=== PATIENT | female | born 1990 | race Caucasian/White ===

== ENCOUNTER 2021-02-05 10:04 | Observation (INO) | payer OTHER, SELFPAY ==
--- NOTE | 2021-02-05 13:18 | OBADM ---
This patient, Shalra Sommers, admitted to the OB room Labor/Delivery/Recovery 104 for observation. Patient/family oriented to hospital policies and general routines including ID bracelet, bed and alarms, visiting hours, pain management, procedures, bathroom and other care routines, personal items, smoking policy, room service/diet, and visiting hours. Patient/Family are encouraged to report perceived risks to care and to ask questions if they do not understand what they are told or what they should do.
--- NOTE | 2021-02-26 10:39 | PM.OBTRLD ---
OB - Triage/Final Diagnosis Visit Information Date of evaluation: 02/05/21 Reason for evaluation: threatened labor Comments/Additional reasons for admission: I have assessed the risk for this patient, Sharla Das, and determined that she would benefit from observation care.
== END 2021-02-05 12:35 | disposition home or self-care (01) ==
PROVIDERS: Admitting Provider Student in an Organized Health Care Education/Training Program; Visit Provider Student in an Organized Health Care Education/Training Program
DX: O47.1 False labor at or after 37 completed weeks of gestation (principal); Z3A.38 38 weeks gestation of pregnancy
CPT/HCPCS: G0378; G0379

== ENCOUNTER 2021-02-05 23:23 | Inpatient (IN) | payer OTHER, SELFPAY ==
--- NOTE | 2021-02-05 12:13 | PM.OBTRLD ---
OB - Triage/Final Diagnosis Visit Information Date of evaluation: 02/05/21 Reason for evaluation: threatened labor Comments/Additional reasons for admission: I have assessed the risk for this patient, Sharla Sommers, and determined that she would benefit from observation care. Evaluation Baseline heart rate: 140 Variability: Moderate (11-25) monitor accelerations: Present monitor decelerations: Episodic Cervical dilation (cm): 1 Cervical effacement (%): 50 station: -3
[2021-02-06] VITALS (57 sets, daily range): BP systolic 94–200; BP diastolic 48–172; PULSE 48–104; RESP 14–18; TEMP 36.4–36.9; O2SAT 98–100; BMI 37.0
--- NOTE | 2021-02-06 00:09 | LDADM ---
This patient, Sharla Sommers, was admitted to Labor/Delivery/Recovery 105 on 02/05/21 at 23:23. Plans for labor, pain management and were discussed with patient. Patient/family oriented to hospital policies and general routines including ID bracelet, bed and alarms, visiting hours, pain management, procedures, bathroom and other care routines, personal items, smoking policy, room service/diet and guest tray routines, security routines, and visiting hours. Patient/Family are encouraged to report perceived risks to care and to ask questions if they do not understand what they are told or what they should do. See OBIX for further documentation.
[2021-02-06] MEDS: LACTATED RINGERS 1,000 ML 125 ML IV CONT ×4 (00:30→06:24)
[2021-02-06 01:10] LABS: Basophils Percent Auto 0.2 % (0.2-1.2); Eosinophils Absolute Auto 0.1 K/mm3 (0-0.3); Eosinophils Percent Auto 0.7 % (0-4.4); Hematocrit 36.3 % (37.0-47.0); Hemoglobin 12.3 g/dL (12.0-15.0); Immature Granulocyte Absolute 0.05 K/mm3 (0.00-0.031); Immature Granulocyte Percent A 0.5 % (0-0.5); Lymphocytes Absolute Auto 1.25 K/mm3 (0.9-3.2); Lymphocytes Percent Auto 12.8 % (18.3-44.2); Mean Corpuscular HGB Conc 33.9 g/dl (32-36); Mean Corpuscular Hemoglobin 31.3 pg (26-34); Mean Corpuscular Volume 92.4 fl (80-100); Mean Platelet Volume 10.6 fl (7.4-10.4); Monocytes Absolute Auto 0.6 K/mm3 (0.1-0.6); Monocytes Percent Auto 6.4 % (2.6-8.5); Neutrophils Absolute Auto 7.8 K/mm3 (1.3-6.7); Neutrophils Percent Auto 79.4 % (45.5-73.1); Platelet Count Result 143 k/mm3 (150-375); Red Blood Count 3.93 M/mm3 (4.2-5.4); Red Cell Distribution Width 13.5 % (11.5-14.5); White Blood Count 9.8 K/mm3 (4.5-10.0)
--- NOTE | 2021-02-06 01:24 | P.PNAN_ITS ---
Anes - Initial Pre Proc Eval Procedure: labor epidural Date/Time: 02/06/21 01:24 Surgeon: Andi Nunez MD Pre Op Diagnosis: labor pain Pre Op Diagnosis: Contractions Patient Data Age: 30 Gender: F Height: 1.6 m Weight: 95 kg Last Vital Signs Pulse 61 02/06/21 01:22 BP 117/72 02/06/21 01:22 Pulse Ox 100 02/06/21 01:19 Allergies Allergy/AdvReac Type Severity Reaction Status Date / Time SEASONAL Allergy Sneezing Uncoded 01/24/21 13:32 Home Medications Medication Instructions Recorded Confirmed Type prenat.vits,tucker,cui-sqwz-kxltc 1 tablet PO DAILY 01/24/21 01/24/21 History Laboratory Tests 02/06/21 02/06/21 00:49 00:49 WBC 9.8 K/mm3 K/mm3 (4.5-10.0) RBC 3.93 M/mm3 L M/mm3 (4.2-5.4) Hgb 12.3 g/dL g/dL (12.0-15.0) Hct 36.3 % L % (37.0-47.0) MCV 92.4 fl fl (80-100) MCH 31.3 pg pg (26-34) MCHC 33.9 g/dl g/dl (32-36) RDW 13.5 % % (11.5-14.5) Plt Count 143 k/mm3 L k/mm3 (150-375) MPV 10.6 fl H fl (7.4-10.4) Immature Gran % (Auto) 0.5 % % (0-0.5) Neut % (Auto) 79.4 % H % (45.5-73.1) Lymph % (Auto) 12.8 % L % (18.3-44.2) Canadian % (Auto) 6.4 % % (2.6-8.5) Eos % (Auto) 0.7 % % (0-4.4) Baso % (Auto) 0.2 % % (0.2-1.2) Lymph # (Auto) 1.25 K/mm3 K/mm3 (0.9-3.2) Canadian # (Auto) 0.6 K/mm3 K/mm3 (0.1-0.6) Eos # (Auto) 0.1 K/mm3 K/mm3 (0-0.3) Baso # (Auto) 0.0 K/mm3 K/mm3 (0.0-0.1) Abs Immat Gran (auto) 0.05 K/mm3 H K/mm3 (0.00-0.031) Absolute Neuts (auto) 7.8 K/mm3 H K/mm3 (1.3-6.7) Absolute Nucleated RBC 0.0 K/mm3 K/mm3 (0.0-0.012) Nucleated RBC % 0.0 % % (0.0-0.2) RPR Pending Patient hx anesthesia problems: none Family hx anesthesia problems: none [facility] Family History Family History (Updated 01/24/21 @ 13:33 by Say Rai RN) Other Unknown family medical history Social History Social History Smoking status: Never smoker Substance use: never Spiritual care concerns: No Anes - Eval Final PreProcedure Day of Procedure 02/06/21 01:24 Patient weight: obese ASA classification: II Anesthesia type and monitoring: regional epidural Informed Consent: The patient's anesthetic plan and its attendant risks and benefits were discussed with the patient/family/POA. Questions were solicited and answers provided to the satisfaction of the patient/family/POA.
--- NOTE | 2021-02-06 03:09 | WPDHPUPDATE1 ---
History and Physical Update Update Date/Time: 02/06/21 03:09 30 yo at 38w6d who presents in labor. Pt had been having contractions all day. She endorses good movement. She denies any vaginal bleeding or leakage of fluid. Her has been uncomplicated thus far. A/P: 30 yo at 38w6d in labor cvx 4cm Ctx Q 6-7 min on toco FHT cat 1 Rh+ GBS neg admit to L&D expectant management History and Physical has been reviewed, including an updated exam of the patient. There are NO changes in the patient's condition. Risks, benefits, and alternatives have been discussed and questions answered. Patient agrees to proceed with procedure.
[2021-02-06] MEDS: ONDANSETRON INJ 4 MG/2 ML VIAL IV PUSH (05:54)
--- NOTE | 2021-02-06 08:50 | PM.OBPRVD ---
OB - Delivery Note Procedure Procedure: Patient pushed for a spontaneous vaginal delivery. The fetus was delivered atraumatically and placed on the maternal abdomen. The cord was clamped and cut after 1 minute of life. The cord was double clamped and cut and a segment of cord was collected for cord gases. Cord blood was collected for blood type and Coomb's testing. The placenta delivered spontaneously and was noted to be intact. The perineum was inspected and there was a 1st degree perineal laceration and left labial. The lacerations were repaired with 3-0 vicryl in the usual fashion. The uterus was firm and good hemostasis was noted. The patient and fetus were stable in the delivery room. Intrapartal events: Deceleration Induction method: none Delivery augmentation: rupture of membranes Delivery monitor: external FHT Route of delivery: Episiotomy description: None Laceration Description: Perineal - 1st Degree and Labial (left) Delivery repair: vicryl Specimen: No Quantitative Blood Loss (ml): 250 Anesthesia type: Epidural Disposition: floor () Complications: No immediate complications Baby Date of : 02/06/21 Time of : 08:37 Weeks of gestation at delivery: 38 gender: Male Weight (pounds): 6 Weight (ounces): 15 presentation: vertex position: Right Occiput Anterior Placenta delivery description: Spontaneous cord vessel description: 3 Vessels score one minute: 7 score five minutes: 9
[2021-02-06 08:52] LABS: Rapid Plasma Reagin Non-Reactive (NonReactive)
[2021-02-06] MEDS: OXYTOCIN 30 UNITS/NS 500 ML 30 UNITS/500 ML BAG 125 UNITS IV CONT (09:13)
[2021-02-06] MEDS: WITCH HAZEL 40 PADS 1 PAD TOPICAL (11:37)
[2021-02-06] MEDS: BENZOCAINE 20% AER SPR (*SP) 56 GM CAN 1 SPRAY TOPICAL (11:37)
--- NOTE | 2021-02-06 11:57 | OBPPTRN ---
Patient transferred to post room #285via wheelchair. Support person present. Oriented to unit, room, information board, rooming in, admission packet and security measures. Patient verbalizes understanding. No barriers to learning identified and pt and spouse are recipients of education and instruction. PT received instructions via one to one discussion and mom baby care guide book.
--- NOTE | 2021-02-06 12:25 | PC.NURSE ---
Mother called out for assist with feeding. Consulted with patient, mother reports fed well first feeding. Reviewed nipple care of lanolin after feedings. Reviewed infant feeding cues, frequencies, duration of feedings, feeding elimination flow sheet, and signs of adequate intake. Demonstrated stimulation techniques to wake for feeding. Assisted with to breast. Reviewed positioning/alignment in cross cradle, holding breast in U hold and guided asymmetrical latch on. Infant was able to latch within a few attempts. nursed eagerly, with steady draws and frequent swallowing noted. Reviewed signs of a correct latch, effective nursing and suck swallow ratio. was able to maintain latch. Mother reported tenderness at times, had slipped to shallow latch. Demonstrated how to adjust latch more deeply while feeding. Mother quickly reports she can feel infant is latched more deeply and has minimal tenderness. Instructed mother to call out for RN assistance if she is unable to latch for feeding or she has discomfort with nursing. Instructed feeding should be initiated three hours from start of last feeding or if feeding cues are noted before. Mother voiced understanding of information shared.
[2021-02-06] MEDS: DOCUSATE SODIUM 100 MG CAPSULE PO (12:37)
[2021-02-06] MEDS: IBUPROFEN 600 MG TABLET PO ×2 (12:38→20:23)
[2021-02-06] MEDS: MULTIVIT/MIN/PREN/FOL AC/IRON TABLET 1 TAB PO (12:38)
[2021-02-06] MEDS: ACETAMINOPHEN 325 MG TABLET 650 MG PO (12:39)
[2021-02-07 00:20] VITALS: BP 116/67; PULSE 82; RESP 13; TEMP 36.6; O2SAT 99
[2021-02-07 04:25] VITALS: BP 119/80; PULSE 60; RESP 14; TEMP 36.8; O2SAT 98
[2021-02-07] MEDS: IBUPROFEN 600 MG TABLET PO ×3 (05:16→20:58)
[2021-02-07 05:55] LABS: Hematocrit 32.8 % (37.0-47.0); Hemoglobin 10.9 g/dL (12.0-15.0)
[2021-02-07 08:25] VITALS: BP 119/73; PULSE 65; RESP 16; TEMP 36.8; O2SAT 99
--- NOTE | 2021-02-07 08:29 | PM.OBPNVD ---
OB - PN: Subj Subjective Date/time seen: 02/07/21 08:29 Narrative: Pain OK. Would like circumcision for son. OB - PN: Obj Data Labs CBC & Chem 7: 02/07/21 05:35 Labs: Laboratory Results - last 24 hr 02/06/21 02/07/21 00:49 05:35 Hgb 10.9 L Hct 32.8 L RPR Non-reactive OB - PN A/P Plan Comments: A: PPD#1, doing well. P: Routine care. Reviewed circ. Exam Psych: Other: AVSS ABD soft, nontender, fundus firm EXT nontender
[2021-02-07] MEDS: DOCUSATE SODIUM 100 MG CAPSULE PO (11:07)
[2021-02-07] MEDS: MULTIVIT/MIN/PREN/FOL AC/IRON TABLET 1 TAB PO (11:07)
--- NOTE | 2021-02-07 12:40 | PC.NURSE ---
Consult with pt., mother reports has gone well during the night. Observed mother independently latching infant without difficulties or discomfort. is easily awoken latching on first attempt, with deep latch nursing with long rhythmic draws and occasional swallowing noted. is WNL for all signs of adequate intake of weight, output, jaundice and satisfaction. Mother is feeding as required and waking infant to feed if needed. Infant has had at least 8 effective feedings in the past 24 hours, and is currently meeting outcomes for weight, output, jaundice and feeding frequencies. Mother states she feels confident to continue effective at home. Reviewed transition to breast milk, signs of adequate intake, and engorgement/relief. Instructed to call ICP if intake/output less than required. Reviewed regular medications mother is taking. Information provided per [facility]. Reviewed community resources on the [facility] website and in the Mom/Baby guide. Information on outpatient services provided. Mother has no further questions at this time.
--- NOTE | 2021-02-07 13:03 | WPDANLDPN2 ---
Anes-Prog Note L&D Date/Time: 02/07/21 13:03 Comfortable throughout: labor and delivery Neuraxial method: epidural Epidural/Spinal procedure site: clean & non-tender Neuro status: Neuro function grossly intact. Cardiovascular status: normal Respiratory status: normal Airway patency: baseline Mental status: baseline Post-Op hydration status: normal Vital Signs: Last Vital Signs Temp 36.8 C 02/07/21 08:25 Pulse 65 02/07/21 08:25 Resp 16 02/07/21 08:25 BP 119/73 02/07/21 08:25 Pulse Ox 99 02/07/21 08:25 Pain score (VAS): 0 Post-procedural complaints: none Patient feedback: Patient satisfied with anesthetic care.
[2021-02-07 19:45] VITALS: BP 139/69; PULSE 70; RESP 18; TEMP 36.4; O2SAT 99
[2021-02-08] MEDS: DOCUSATE SODIUM 100 MG CAPSULE PO (07:43)
[2021-02-08] MEDS: MULTIVIT/MIN/PREN/FOL AC/IRON TABLET 1 TAB PO (07:43)
[2021-02-08] MEDS: BENZOCAINE 20% AER SPR (*SP) 56 GM CAN 1 SPRAY TOPICAL (07:43)
[2021-02-08] MEDS: IBUPROFEN 600 MG TABLET PO (07:43)
[2021-02-08] MEDS: WITCH HAZEL 40 PADS 1 PAD TOPICAL (07:43)
[2021-02-08 08:00] VITALS: BP 136/77; PULSE 79; RESP 18; TEMP 37
--- NOTE | 2021-02-08 11:44 | PM.OBPNVD ---
OB - PN: Subj Subjective Date/time seen: 02/08/21 11:44 Narrative: Pain OK. Would like to go home. OB - PN: Obj Data Labs CBC & Chem 7: 02/07/21 05:35 OB - PN A/P Plan Comments: A: PPD#2, doing well. P: Home to f/u 6 weeks. Exam Psych: Other: AVSS ABD soft, nontender, fundus firm EXT nontender
--- NOTE | 2021-02-08 11:47 | PC.NURSE ---
SElf care and infant care discharge instructions given including when to return for follow up visit. Pt. verbalized understanding. No questions or concerns verbalized. Very pleasant and cooperative. at side.
[2021-02-10 09:42] VITALS: BP 130/79; PULSE 93; RESP 20; TEMP 36.9; O2SAT 99
--- NOTE | 2021-02-11 07:09 | PM.OBDSVD ---
DS: Admitting Diagnosis Admitting Diagnosis Admitting Diagnosis: Labor DS: Discharge Diagnosis Discharge Diagnosis (1) Vaginal after , delivered, current hospitalization: Code(s): O34.219 - Maternal care for unspecified type scar from previous delivery Status: Acute OB - DS: Summary OB Procedures : None OB Procedures Intrapartum: Spontaneous Vag Delivery OB Procedures: : None Time Spent with Patient Time attestation: Total time spent providing and/or coordinating discharge services: Discharge Plan Discharge Attending physician on discharge: Andi Nunez Discharging Clinician: Timothy Tobias Patient Disposition: Home, Self-Care Activity: pelvic rest Diet: regular Discharge Instructions: Call or return if temperature above 100.4? F, increased abdominal pain, increased vaginal bleeding or any new problems. Education: Mom and Baby Guide Given to: Mother Follow-Up: Call your delivering provider's office for an appointment to be seen in: 4 Weeks Mom and baby should come to the [facility] for the follow-up appointment. Appointment Date/Time: Wednesday, February 10, 2021 at 10:00 am What to expect at your follow-up visit: Blood Pressure Check Physical Assessment Call [phone] if you are unable to keep your appointment time. BREAST CARE: * Wear a snug supportive bra. * For engorgement discomfort: Breast Feeding: * Apply warm moist washcloths * Express milk as needed to relieve engorgement * Wear loose clothing * For sore nipples: * Identify correct latch-on * Apply warm moist washcloths before and after nursing * Air dry nipples after nursing * May apply Lansinoh cream to nipples EPISIOTOMY/PERINEAL CARE: * Until bleeding stops, use your kirk bottle after urinating * Change your pad frequently throughout the day * You may take sitz baths several times a day (fill your bathtub with warm water and soak for 20 minutes.) Do NOT bathe in the water * No tub baths until seen by your physician - You may shower ACTIVITY: * Rest as much as possible. * Do not exercise or lift anything heavier than your baby (such as laundry or other children.) * Do not put anything into the vagina. No douching, tampons, or sexual activity until seen by physician. NOTIFY PHYSICIAN IF YOU HAVE ANY QUESTIONS OR IF ANY OF THE FOLLOWING SYMPTOMS OCCUR: * If your episiotomy becomes red, swollen, or more painful than what you have experienced in the hospital. * If your vaginal bleeding becomes foul smelling. * If your vaginal bleeding becomes more heavy than a period or if your bleeding changes from pink to bright red. However, you may pass an occasional walnut-sized clot once or twice for the first week . * If you experience a sharp, shooting pain in you calves. * If you discover a hard, reddened area on your breast or if you experience flu-like symptoms. DIET: * Eat regular, well-balanced meals. * Drink plenty of fluids daily. If , drink to thirst. Stand Alone Forms: General Discharge Information Follow-up/Referrals: Andi Nunez MD [Physician] - 6 Weeks Discharge Medications: New ibuprofen 600 mg tablet 600 mg PO Q6H PRN (Reason: cramps) Qty: 30 RF: 0 KPN Tablet 1 tab PO DAILY RF: 0 Continued prenat.vits,tucker,[id number] Tablet 1 tablet PO DAILY RF: 0 Date of admission: 02/05/21 23:23 Primary Care Provider: PHYSICIAN,[employer]ORER/DESIGNER Admitting Provider: Andi Nunez Attending physician on admission: Andi Nunez Condition: Stable
--- NOTE | 2021-02-19 16:00 | PM.OBDSVD ---
DS: Admitting Diagnosis Admitting Diagnosis Admitting Diagnosis: Labor OB - DS: Summary OB Procedures : None OB Procedures Intrapartum: Spontaneous Vag Delivery OB Procedures: : None Status at Discharge Functional status at discharge: independent ambulation Overall status at discharge: patient is back to baseline Time Spent with Patient Time attestation: Total time spent providing and/or coordinating discharge services: Time spent: Less than 30 minutes Exam Const: General: comfortable and no acute distress Resp: Effort & Inspection: normal respiratory effort Auscultation: clear to auscultation bilaterally Cardio: Rate: regular rate GI: GI Palp: Yes Soft to palpation Auscultation: normal bowel sounds Other: Fundus firm below umbilicus Psych: Appearance: grossly normal Mental Status: mental status grossly normal Affect: normal affect Discharge Plan Discharge Attending physician on discharge: Andi Nunez Consulting providers: Xu Mckay Discharging Clinician: Timothy Tobias Patient Disposition: Home, Self-Care Activity: pelvic rest Diet: regular Discharge Instructions: Call or return if temperature above 100.4? F, increased abdominal pain, increased vaginal bleeding or any new problems. Education: Mom and Baby Guide Given to: Mother Follow-Up: Call your delivering provider's office for an appointment to be seen in: 4 Weeks Mom and baby should come to the [facility] for the follow-up appointment. Appointment Date/Time: Wednesday, February 10, 2021 at 10:00 am What to expect at your follow-up visit: Blood Pressure Check Physical Assessment Call [phone] if you are unable to keep your appointment time. BREAST CARE: * Wear a snug supportive bra. * For engorgement discomfort: Breast Feeding: * Apply warm moist washcloths * Express milk as needed to relieve engorgement * Wear loose clothing * For sore nipples: * Identify correct latch-on * Apply warm moist washcloths before and after nursing * Air dry nipples after nursing * May apply Lansinoh cream to nipples EPISIOTOMY/PERINEAL CARE: * Until bleeding stops, use your kirk bottle after urinating * Change your pad frequently throughout the day * You may take sitz baths several times a day (fill your bathtub with warm water and soak for 20 minutes.) Do NOT bathe in the water * No tub baths until seen by your physician - You may shower ACTIVITY: * Rest as much as possible. * Do not exercise or lift anything heavier than your baby (such as laundry or other children.) * Do not put anything into the vagina. No douching, tampons, or sexual activity until seen by physician. NOTIFY PHYSICIAN IF YOU HAVE ANY QUESTIONS OR IF ANY OF THE FOLLOWING SYMPTOMS OCCUR: * If your episiotomy becomes red, swollen, or more painful than what you have experienced in the hospital. * If your vaginal bleeding becomes foul smelling. * If your vaginal bleeding becomes more heavy than a period or if your bleeding changes from pink to bright red. However, you may pass an occasional walnut-sized clot once or twice for the first week . * If you experience a sharp, shooting pain in you calves. * If you discover a hard, reddened area on your breast or if you experience flu-like symptoms. DIET: * Eat regular, well-balanced meals. * Drink plenty of fluids daily. If , drink to thirst. Stand Alone Forms: General Discharge Information Follow-up/Referrals: Andi Nunez MD [Physician] - 6 Weeks Discharge Medications: New ibuprofen 600 mg tablet 600 mg PO Q6H PRN (Reason: cramps) Qty: 30 RF: 0 KPN Tablet 1 tab PO DAILY RF: 0 Continued prenat.vits,tucker,dhy-skqp-asspe Tablet 1 tablet PO DAILY RF: 0 Date of admission: 02/05/21 23:23 Primary Care Provider: PHYSICIAN,PLATFORM LOADER
== END 2021-02-08 12:16 | disposition home or self-care (01) | DRG 807 ==
LOC: ANHLDR 02-06 00:09 → ANHOB2 02-06 15:32 → ANHLDR 02-11 10:16 → ANHOB2 02-11 10:16
PROVIDERS: Admitting Provider Student in an Organized Health Care Education/Training Program; Visit Provider Obstetrics & Gynecology
DX: O99.214 Obesity complicating childbirth (principal); Z37.0 Single live birth; Z3A.38 38 weeks gestation of pregnancy; O36.8330 Maternal care for abnormalities of the fetal heart rate or rhythm, third trimester, not applicable or unspecified; O70.0 First degree perineal laceration during delivery; E66.9 Obesity, unspecified
CPT/HCPCS: 36415; 85014; 85018; 85025; 86592; 86850; 86900; 86901; A9270; G0378; G0379; J2405; J2590; J2795; J7120

== ENCOUNTER 2024-07-17 00:09 | Inpatient (IN) | payer OTHER, SELFPAY ==
[2024-07-17] VITALS (235 sets, daily range): BP systolic 79–139; BP diastolic 37–96; PULSE 57–129; RESP 14–18; TEMP 36.1–36.8; O2SAT 95–100; BMI 41.9
--- NOTE | 2024-07-17 06:27 | WPDANESEPP ---
Anes - Eval Pre Procedure Procedure: labor epidural Date/Time: 07/17/24 06:27 Preop Diagnosis: pain during labor Pre Op Diagnosis: CTX Patient Data Age: 33 Gender: F Height: Weight: Allergies Allergy/AdvReac Type Severity Reaction Status Date / Time SEASONAL Allergy Sneezing Uncoded 01/24/21 13:32 Home Medications Medication Instructions Recorded Confirmed Type prenat.vits,tucker,qqn-zupc-nzxwg 1 tablet PO DAILY 01/24/21 01/24/21 History Patient hx anesthesia problems: none Family hx anesthesia problems: none Results Review: All pre-operative results and documents have been reviewed as part of the pre-operative evaluation. COUNT INCLUDES [facility] Family History Family History Other Unknown family medical history Social History Social History Smoking status: Never smoker Substance use: never Spiritual care concerns: No Exam Day of Procedure 07/17/24 06:27
--- NOTE | 2024-07-17 07:00 | PM.IMHP ---
H&P: HPI History of Present Illness Date/Time: 07/17/24 07:00 Chief Complaint: Labor at term Narrative: you 3-year-old 3 para 1 at term in active labor. Her has been uncomplicated PMF Family History Family History Other Unknown family medical history Social History Social History Smoking status: Never smoker Substance use: never Spiritual care concerns: No Meds Home Medications and Allergies Home Medications Medication Instructions Recorded Confirmed Type prenat.vits,tucker,eob-tqun-ahcue 1 tablet PO DAILY 01/24/21 01/24/21 History Allergies Allergy/AdvReac Type Severity Reaction Status Date / Time SEASONAL Allergy Sneezing Uncoded 01/24/21 13:32 Exam Const: General: cooperative, healthy appearing and comfortable Nutritional Appearance: average body habitus Orientation/consciousness: oriented to person, oriented to place and oriented to time Resp: Effort & Inspection: normal respiratory effort Cardio: Rate: regular rate Rhythm: regular rhythm Heart sounds: S1 normal heart sound present and S2 normal heart sound present GI: Inspection: normal to inspection ( soft gravid uterus) : External Female Exam: normal external appearance Speculum Exam - Vagina: normal appearance of the vagina Speculum Exam - Cervix: normal appearance of the cervix ( cervix 3cm FHTs reassuring. Clear fluid the) Assessment and Plan Assessment and plan (1) Term : Code(s): Z34.90 - Encounter for supervision of normal , unspecified, unspecified trimester Status: Acute (2) Previous section: Code(s): Z98.891 - History of uterine scar from previous surgery Status: Acute Assessment and Plan: patient will undertake for labor after she has a successful for the past she has an epidural candidate
[2024-07-17 07:18] LABS: Basophils Percent Auto 0.2 % (0.2-1.2); Eosinophils Absolute Auto 0.1 K/mm3 (0-0.3); Eosinophils Percent Auto 1.3 % (0-4.4); Hematocrit 38.3 % (37.0-47.0); Hemoglobin 12.8 g/dL (12.0-15.0); Immature Granulocyte Absolute 0.09 K/mm3 (0.00-0.031); Lymphocytes Absolute Auto 1.35 K/mm3 (0.9-3.2); Lymphocytes Percent Auto 15.4 % (18.3-44.2); Mean Corpuscular HGB Conc 33.4 g/dl (32-36); Mean Corpuscular Hemoglobin 31.4 pg (26-34); Mean Corpuscular Volume 93.9 fl (80-100); Mean Platelet Volume 10.5 fl (7.4-10.4); Monocytes Absolute Auto 0.6 K/mm3 (0.1-0.6); Monocytes Percent Auto 7.2 % (2.6-8.5); Neutrophils Absolute Auto 6.6 K/mm3 (1.3-6.7); Neutrophils Percent Auto 74.9 % (45.5-73.1); Platelet Count Result 141 k/mm3 (150-375); Red Blood Count 4.08 M/mm3 (4.2-5.4); Red Cell Distribution Width 14.4 % (11.5-14.5); White Blood Count 8.8 K/mm3 (4.5-10.0)
[2024-07-17] MEDS: LACTATED RINGERS 1,000 ML 125 ML IV CONT ×4 (07:20→19:13)
[2024-07-17 08:10] LABS: HIV 1/2 Ab P24 Ag Result Negative (Negative)
[2024-07-17] MEDS: OXYTOCIN 30 UNITS/NS 500 ML 30 UNITS/500 ML BAG IV CONT (08:11)
[2024-07-17 09:01] LABS: Rapid Plasma Reagin Non-Reactive (NonReactive)
[2024-07-17] MEDS: ONDANSETRON INJ 4 MG/2 ML VIAL IV PUSH ×2 (09:21→16:30)
[2024-07-17] MEDS: ePHEDrine sulfate INJ 50 MG/ML AMPUL IV PUSH ×2 (10:05→10:07)
--- NOTE | 2024-07-17 10:29 | PM.OBPNLAB ---
Pain Control Date/time seen: 07/17/24 10:29 Pain control: tolerating well and epidural Pelvic Exam Dilation (cm): 2 Effacement (%): 50 station: -2 Amniotic membrane status: Leaking Contractions Monitor mode: External
[2024-07-17] MEDS: SODIUM CHLORIDE 0.9% IV 300 ML 600 ML I-UTERINE (15:57)
--- NOTE | 2024-07-17 18:06 | PM.OBPNLAB ---
Pain Control Date/time seen: 07/17/24 18:06 Pain control: tolerating well and epidural Pelvic Exam Dilation (cm): 9 Effacement (%): 100 station: -1 Amniotic membrane status: Leaking Comments: variables present. repositioned Contractions Monitor mode: External
--- NOTE | 2024-07-17 19:05 | PM.OBPNLAB ---
Pain Control Date/time seen: 07/17/24 19:05 Pain control: tolerating well and epidural Comments: Prolonged deceleration noted again cervix is still unchanged from her room she is unable to tolerate adequate contractions and was offered low-transverse section risks and benefits reviewed great Pelvic Exam Dilation (cm): 9 Effacement (%): 100 station: -1 Amniotic membrane status: Leaking Contractions Monitor mode: External
--- NOTE | 2024-07-17 19:05 | WPDHPUPDATE1 ---
History and Physical Update Update Date/Time: 07/17/24 19:05 History and Physical has been reviewed, including an updated exam of the patient. There are NO changes in the patient's condition. Risks, benefits, and alternatives have been discussed and questions answered. Patient agrees to proceed with procedure.
[2024-07-17] MEDS: ACETAMINOPHEN 500 MG TABLET 1000 MG PO (19:13)
[2024-07-17] MEDS: ceFAZolin 2 GM/D5W 50 ML 2 GM/50 ML BAG IVPB (19:13)
[2024-07-17] MEDS: AZITHROMYCIN 500 MG/NS 250 ML 500 MG/250 ML BAG 250 MG IVPB (19:13)
[2024-07-17] MEDS: FAMOTIDINE 20 MG/2 ML VIAL IV PUSH (19:13)
--- NOTE | 2024-07-17 20:10 | W.PM.OBCSD ---
OB - Delivery Note Procedure Delivery date: 07/17/24 Pre-op diagnosis: Arrest of Decent and Other ( inTolerance to labor) Post-op Diagnosis: Same Induction method: AROM Delivery augmentation: Pitocin Delivery monitor: External FHT, External Uterine, Internal FHT and Internal Uterine Prior to decision for section, ACOG/SMFM labor guidelines were considered and discussed with the patient and staff. Decision made to proceed with the section.: Yes Procedure Performed: Primary Surgeon: Bob Stoner MD Anesthesia type: Epidural Description of Procedure/Findings: patient was admitted for induction labor term she got to the room and the baby did not tolerate contractions she had several episodes of decelerations and decision was made for low-transverse section After obtaining informed consent she was prepped draped in normal sterile fashion placed in the supine position. Under excellent epidural anesthesia the abdomen was entered in Pfannenstiel fashion progressed through layers to the fascia. The fascia was incised midline cure number Dr. Fashion bilaterally. Underlying muscles were sharply dissected. Parietal peritoneum elevated Elenita clamps and entered sharply superiorly and inferiorly to the dome of the bladder. Bladder blade was placed. A bladder flap was formed. The bladder blade returned low-transverse incision made the head delivered the REYNA position. Anterior posterior shoulder delivered spontaneously. Cord clamped to its cut infant passed off the table with an excellent cry. Placenta delivered intact manually. Uterus delivered on the abdomen wrapped and after assuring no membranes or debris remained in the uterus, the uterus was closed with continuous running 0 Vicryl and then locking fashion from lateral edge to lateral edge. This was followed by 2nd imbricating running locking 0 Vicryl from lateral edge to lateral edge. Hemostasis was assured. Ovaries and tubes appeared within normal limits. Uterus returned to the abdomen. The hysterotomy incision inspected 1 last time and noted be hemostatic. The laps removed and accounted for. The fascia closed with continuous running 0 Vicryl from lateral edge to midline bilaterally. Irrigation the subcutaneous layer and the skin closed with 4 Monocryl glue. QBL was 600 15cc. All sponge, needle, instrument counts were correct. There were no immediate complications Estimated Blood Loss: 615 Drains: No Packing: No Pathology: None sent Complications: No immediate complications Condition: Stable Disposition: Floor Baby Date of : 07/17/24 Gestational Age by Date: 40 Infant gender: Female Weight (pounds): 7 Weight (ounces): 12 presentation: vertex position: Right Occiput Anterior Placenta delivery description: Spontaneous Cord Vessel Description: 3 Vessels
--- NOTE | 2024-07-17 20:14 | PM.DS ---
DS: Admitting Diagnosis Discharge Date 07/19/2024 Admitting Diagnosis term DS: Discharge Diagnosis Discharge Diagnosis (1) Term : Code(s): Z34.90 - Encounter for supervision of normal , unspecified, unspecified trimester Status: Acute DS: Summary Hospital Course Reason for hospitalization: patient was admitted for induction of labor 07/17/2024 she underwent low-transverse section for intolerance to labor Hospital Course: patient's hospital course was remarkable. She. Was up, voiding Without difficulty eating a regular diet and generally without complaints. Time Spent with Patient Time attestation: Total time spent providing and/or coordinating discharge services: Exam Const: General: cooperative, healthy appearing, comfortable and well groomed Orientation/consciousness: oriented to person, oriented to place and oriented to time Resp: Effort & Inspection: normal respiratory effort Cardio: Rate: regular rate Rhythm: regular rhythm Heart sounds: S1 normal heart sound present and S2 normal heart sound present GI: Inspection: normal to inspection and incision ( wound is clean dry and intact) DS: Data Data Completed and Pending Labs on day of discharge: Labs from last 24 hours 07/17/24 07/17/24 07:11 07:10 WBC 8.8 RBC 4.08 L Hgb 12.8 Hct 38.3 MCV 93.9 MCH 31.4 MCHC 33.4 RDW 14.4 Plt Count 141 L MPV 10.5 H Immature Gran % (Auto) 1.0 H Neut % (Auto) 74.9 H Lymph % (Auto) 15.4 L [place] % (Auto) 7.2 Eos % (Auto) 1.3 Baso % (Auto) 0.2 Lymph # (Auto) 1.35 [place] # (Auto) 0.6 Eos # (Auto) 0.1 Baso # (Auto) 0.0 Abs Immat Gran (auto) 0.09 H Absolute Neuts (auto) 6.6 Absolute Nucleated RBC 0.000 Nucleated RBC % 0.0 RPR Non-reactive HIV 1&2 Ab/P24 Ag 4thGn Negative Blood Type B Positive Antibody Screen Negative Discharge Plan Discharge Attending physician on discharge: Bob Yao Discharging Clinician: Bob Yao Patient Disposition: Home, Self-Care Activity: may shower and pelvic rest Diet: heart healthy Wound Care Instructions: follow printed instructions Patient Instructions: Antibiotic Form Stand Alone Forms: General Discharge Information Follow-up/Referrals: Bob Yao MD [Physician] - Discharge Medications: New hydrocodone-acetaminophen 5-325 mg tablet 1 tablet PO Q4H PRN (Reason: pain) Qty: 30 0RF Continued prenat.vits,tucker,ibx-pvvp-wpwvb Tablet 1 tablet PO DAILY Date of admission: 07/17/24 00:09 Primary Care Provider: 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
[2024-07-17] MEDS: OXYTOCIN 30 UNITS/NS 500 ML 30 UNITS/500 ML BAG 125 UNITS IV CONT (20:45)
[2024-07-17] MEDS: diphenhydrAMINE HCl INJ 50 MG/ML VIAL 25 MG IV PUSH (21:34)
[2024-07-17] MEDS: HYDROmorphone HCL INJ (*CRX) 1 MG/ML SYR 0.5 MG IV PUSH (21:36)
[2024-07-18 04:32] LABS: Basophils Percent Auto 0.1 % (0.2-1.2); Eosinophils Percent Auto 0.1 % (0-4.4); Hematocrit 33.1 % (37.0-47.0); Hemoglobin 10.5 g/dL (12.0-15.0); Immature Granulocyte Absolute 0.07 K/mm3 (0.00-0.031); Immature Granulocyte Percent A 0.4 % (0-0.5); Lymphocytes Percent Auto 5.7 % (18.3-44.2); Mean Corpuscular HGB Conc 31.7 g/dl (32-36); Mean Corpuscular Hemoglobin 30.9 pg (26-34); Mean Corpuscular Volume 97.4 fl (80-100); Mean Platelet Volume 10.7 fl (7.4-10.4); Monocytes Absolute Auto 0.7 K/mm3 (0.1-0.6); Monocytes Percent Auto 4.5 % (2.6-8.5); Neutrophils Absolute Auto 14.1 K/mm3 (1.3-6.7); Neutrophils Percent Auto 89.2 % (45.5-73.1); Platelet Count Result 127 k/mm3 (150-375); Red Cell Distribution Width 14.6 % (11.5-14.5); White Blood Count 15.9 K/mm3 (4.5-10.0)
[2024-07-18] MEDS: KETOROLAC 15 MG/ML VIAL (*BKC) IV PUSH ×3 (05:11→17:17)
[2024-07-18] MEDS: ACETAMINOPHEN 325 MG TABLET 650 MG PO ×3 (05:11→17:17)
[2024-07-18] MEDS: LIDOCAINE 5% PATCH 1 PATCH TRANSDERM (05:13)
--- NOTE | 2024-07-18 07:03 | P.PNOB_ITS ---
OB - PN: Subj Subjective Date/time seen: 07/18/24 07:03 Patient comments: no complaints and pain well controlled baby status: doing well and nursing well OB - PN: Obj Data Labs 07/18/24 04:00 Labs: Laboratory Results - last 24 hr 07/17/24 07/17/24 07/18/24 07:10 07:11 04:00 WBC 8.8 15.9 H RBC 4.08 L 3.40 L Hgb 12.8 10.5 L Hct 38.3 33.1 L MCV 93.9 97.4 MCH 31.4 30.9 MCHC 33.4 31.7 L RDW 14.4 14.6 H Plt Count 141 L 127 L MPV 10.5 H 10.7 H Immature Gran % (Auto) 1.0 H 0.4 Neut % (Auto) 74.9 H 89.2 H Lymph % (Auto) 15.4 L 5.7 L [place] % (Auto) 7.2 4.5 Eos % (Auto) 1.3 0.1 Baso % (Auto) 0.2 0.1 L Lymph # (Auto) 1.35 0.90 [place] # (Auto) 0.6 0.7 H Eos # (Auto) 0.1 0.0 Baso # (Auto) 0.0 0.0 Abs Immat Gran (auto) 0.09 H 0.07 H Absolute Neuts (auto) 6.6 14.1 H Absolute Nucleated RBC 0.000 0.000 Nucleated RBC % 0.0 0.0 RPR Non-reactive HIV 1&2 Ab/P24 Ag 4thGn Negative Blood Type B Positive Antibody Screen Negative OB - PN A/P Plan day: 1 Plan: routine care Time Spent With Patient Time: Total time spent is greater than 50% in coordination of care (as documented) at patient's floor/unit and/or counseling patient: Time with patient: less than 15 minutes Exam Const: General: cooperative, healthy appearing and comfortable Nutritional Appearance: average body habitus Orientation/consciousness: oriented to person, oriented to place and oriented to time Resp: Effort & Inspection: normal respiratory effort Cardio: Rate: regular rate Rhythm: regular rhythm Heart sounds: S1 normal heart sound present and S2 normal heart sound present GI: Inspection: normal to inspection and incision (cdi)
[2024-07-18 07:45] VITALS: BP 104/59; PULSE 75; RESP 16; TEMP 36.6; O2SAT 98
[2024-07-18] MEDS: SIMETHICONE 80 MG TAB.CHEW PO ×3 (09:30→17:16)
--- NOTE | 2024-07-18 09:30 | PC.NURSE ---
Introductions were made, then consulted with patient to assess needs related to . Discussed with mother her?plans to feed?her and the?experience so far. She said infant is doing well and she breastfed her first baby. She declines having any questions or concerns. Encouraged her to call out today for a latch check. Resources provided for inpatient and outpatient services with the feeding sheet, mom/baby guide and name/number written on the communication board. Mother voiced understanding of information and will call if there is a request for assistance. Reported to the Primary RN.
[2024-07-18] MEDS: DOCUSATE SODIUM 100 MG CAPSULE PO ×2 (09:31→17:16)
[2024-07-18] MEDS: MULTIVIT/MIN/PREN/FOL AC/IRON TABLET 1 TAB PO (09:31)
--- NOTE | 2024-07-18 09:44 | WPDANLDPN2 ---
Anes-Prog Note L&D Date/Time: 07/18/24 09:44 Comfortable throughout: section Neuraxial method: spinal Epidural/Spinal procedure site: clean & non-tender Neuro status: Neuro function grossly intact. Cardiovascular status: normal Respiratory status: normal Airway patency: baseline Mental status: baseline Post-Op hydration status: normal Vital Signs: Last Vital Signs Temp 98 F 07/18/24 07:45 Pulse 75 07/18/24 07:45 Resp 16 07/18/24 07:45 BP 104/59 L 07/18/24 07:45 Pulse Ox 98 07/18/24 07:45 O2 Del Method Room Air 07/17/24 22:30 Pain score (VAS): 0/10 I/O: Intake & Output 07/17/24 07/18/24 07/18/24 23:59 07:59 15:59 Intake Total 191.7 Output Total 715 Balance -523.3 Post-procedural complaints: none Patient feedback: Patient satisfied with anesthetic care.
--- NOTE | 2024-07-18 09:45 | WPDANLDNPN2 ---
Anes-Prog Note L&D-Neuraxial Date/Time: 07/18/24 09:45 Neuraxial medications: intrathecal PF morphine Opiod-related complaints: none Patient feedback: Patient satisfied with post-operative pain management.
[2024-07-18 12:03] VITALS: BP 102/60; PULSE 78; RESP 18; TEMP 36.3; O2SAT 98
[2024-07-18 19:36] VITALS: BP 114/57; PULSE 78; RESP 14; TEMP 36.6; O2SAT 97
[2024-07-19] MEDS: ACETAMINOPHEN 325 MG TABLET 650 MG PO ×2 (00:15→06:11)
[2024-07-19] MEDS: IBUPROFEN 600 MG TABLET PO ×2 (00:18→06:12)
--- NOTE | 2024-07-19 05:56 | PM.OBPNVD ---
OB - PN: Subj Subjective Date/time seen: 07/19/24 05:56 Patient comments: no complaints and pain well controlled baby status: doing well and nursing well OB - PN: Obj Data Labs 07/18/24 04:00 OB - PN A/P Plan day: 2 Plan: routine care, discharge home and follow up 6 weeks (4) Time Spent With Patient Time: Total time spent is greater than 50% in coordination of care (as documented) at patient's floor/unit and/or counseling patient: Time with patient: less than 15 minutes Exam Const: General: cooperative, healthy appearing and comfortable Nutritional Appearance: average body habitus Orientation/consciousness: oriented to person, oriented to place and oriented to time Resp: Effort & Inspection: normal respiratory effort Cardio: Rate: regular rate Rhythm: regular rhythm Heart sounds: S1 normal heart sound present and S2 normal heart sound present GI: Inspection: normal to inspection and incision (cdi)
[2024-07-19 08:45] VITALS: BP 126/73; PULSE 88; RESP 16; TEMP 36.9; O2SAT 99
[2024-07-19] MEDS: MULTIVIT/MIN/PREN/FOL AC/IRON TABLET 1 TAB PO (09:13)
[2024-07-19] MEDS: DOCUSATE SODIUM 100 MG CAPSULE PO (09:13)
[2024-07-19] MEDS: SIMETHICONE 80 MG TAB.CHEW PO (09:13)
--- NOTE | 2024-07-19 11:40 | PC.NURSE ---
Mother verbalizes she is able to independently latch with appropriate positioning and alignment, she did mention some of the latches on her left breast have been shallow, RN reviewed an optimal latch. She denies any nipple discomfort and is responsively . is currently meeting outcomes for weight, output, jaundice, blood sugar and feeding frequencies of 8-12 times in 24 hours. Mother declines any additional assistance or education at this time. Mother is encouraged to call for assistance if her doesn?t latch, pain with latching, questions or concerns. Mother voiced understanding of information shared along with the mom/baby guide for an additional resource. Reported to the Primary RN.
[2024-07-19] MEDS: INFLUENZA TRIVALENT VACCINE 45 MCG/0.5 ML SYRINGE IM (11:58)
[2024-07-20 10:38] VITALS: BP 134/71; PULSE 80; RESP 18; TEMP 36.7; O2SAT 98
== END 2024-07-19 13:35 | disposition home or self-care (01) | DRG 788 ==
LOC: ANHLDR 20:16 → ANHOB2 07-19 10:19 → ANHLDR 07-20 10:48 → ANHOB2 07-20 10:48
PROVIDERS: Obstetrics & Gynecology; Admitting Provider Obstetrics & Gynecology Gynecology; Visit Provider Obstetrics & Gynecology
PROC: 10D00Z1 Extraction of Products of Conception, Low, Open Approach (ICD-10-PCS; CPT 59514; principal; 2024-07-17 19:00)
DX: O77.0 Labor and delivery complicated by meconium in amniotic fluid (principal); Z37.0 Single live birth; Z3A.39 39 weeks gestation of pregnancy; Z23 Encounter for immunization; O62.1 Secondary uterine inertia
CPT/HCPCS: 36415; 85025; 86592; 86703; 86850; 86900; 86901; 90471; 90656; A9270; G0008; G0432; J0456; J0690; J1170; J1200; J1885; J2175; J2274; J2371; J2405; J2590; J2704; J2795; J7030; J7120